=== PATIENT | male | born 1990 | race Caucasian/White ===

== ENCOUNTER 2020-07-22 14:10 | Emergency (ER) | payer MEDICAID, SELFPAY ==
[2020-07-22 14:37] VITALS: BP 114/71; PULSE 73; RESP 18; TEMP 37.1; O2SAT 98; BMI 22.0
[2020-07-22 15:46] LABS: Glucose Urine UA NEG (NEG); Leukocyte Esterase Urine 1+ (NEG); Nitrite Urine NEG (NEG); UACC Culture Trigger YES; Urine Blood NEG (NEG); Urine Ketones NEG (NEG); Urine Protein NEG (NEG-TRACE)
[2020-07-22 15:47] LABS: Appearance Urine CLEAR; Color Urine YELLOW
[2020-07-22 15:54] LABS: RBC Urine 0 /HPF (0); WBC Urine 0-2 /HPF (0-4)
--- NOTE | 2020-07-22 17:24 | ED.MALEGU ---
HPI - Male Genitourinary General Chief complaint: Urogenital-Male Stated complaint: ?std Time Seen by Provider: 07/22/20 17:24 History of Present Illness HPI Narrative: Patient is here for testing and treatment as his girlfriend told him today that she tested positive for both gonorrhea and Chlamydia, she went to a clinic and they have provided her with treatment and he is here for testing and treatment, he denies any discharge he has no testicular pain he has no genital lesions or sores no rashes and says he is asymptomatic, no burning with urination Related Data Previous Rx's Medication Instructions Recorded doxycycline hyclate 100 mg PO BID 7 Days #14 cap 07/22/20 Allergies Allergy/AdvReac Type Severity Reaction Status Date / Time bee pollen [BEE STINGS] Allergy Unknown FACIAL Verified 07/22/20 14:36 SWELLING shrimp Allergy Unknown SWELLING Verified 07/22/20 14:36 Review of Systems Review of Systems: Positive for STD for exposure in negatives are no fever no chills no dizziness no weakness no abdominal pain no nausea or vomiting no genital sores no discharge no burning with urination no changes to urinary pattern no frequency Yes all other systems are reviewed and are negative [facility] Past Medical History Source: nursing notes reviewed Medical History (Updated 07/23/20 @ 00:00 by Background Daemon) Patient denies medical problems Social History Social History Advance Directives: No Advance Directives Information Provided: Yes Physical Exam Vital Signs: Vital Signs: Last Vital Signs Temp 98.7 F 07/22/20 14:37 Pulse 73 07/22/20 14:37 Resp 18 07/22/20 14:37 BP 114/71 07/22/20 14:37 Pulse Ox 98 07/22/20 14:37 Body Mass Index 22.0 General appearance no acute distress The neck is supple The respiratory no acute distress Abdomen soft nontender Genital exam normal Extremities full range of motion x4 Skin no rashes Course Course Course Narrative: Patient is treated for probable gonorrhea and chlamydia, testing was sent MDM - Male Genitourinary Lab Data Labs: Lab Results 07/22/20 07/22/20 Range/Units 15:29 15:29 Urine Color YELLOW Urine Appearance CLEAR Urine pH 6.0 (5.0-8.0) Ur Specific [place] 1.010 (1.005-1.025) Urine Protein NEG (NEG-TRACE) MG/DL Urine Glucose (UA) NEG (NEG) MG/DL Urine Ketones NEG (NEG) MG/DL Urine Blood NEG (NEG) Urine Nitrite NEG (NEG) Ur Leukocyte Esterase 1+ H (NEG) Urine RBC 0 (0) /HPF Urine WBC 0-2 (0-4) /HPF Ur Squamous Epith Cells NONE /LPF Urine Bacteria NONE /LPF Chlam trachomat DNA PCR NOT DETECTED (Not Detect.) N.gonorrhoeae DNA (PCR) DETECTED A (Not Detect.) Discharge Plan Discharge Clinical Impression: Exposure to STD Patient Disposition: Home, Self-Care Additional Instructions: We are treating you with medication for gonorrhea and Chlamydia, take all medication until completed We tested and will call you if there are any positive results We recommend follow-up repeat testing in 10 days to 2 weeks to confirm that treatment was effective [facility] Prescriptions: New doxycycline hyclate 100 mg capsule 100 mg PO BID 7 Days Qty: 14 RF: 0 Interventions: ED Discharge Assessment Last Done: 07/22/20 18:07 Discharge Date/Time: 07/22/20 18:12
[2020-07-22] MEDS: cefTRIAXone sodium 500 MG, Lidocaine HCl 1 % MPF 1 ML IM (17:57)
[2020-07-22] MEDS: Azithromycin 500 MG TABLET 1000 MG PO (17:59)
[2020-07-23 03:29] LABS: CT PCR NOT DETECTED (Not Detect.); NG PCR DETECTED (Not Detect.)
== END 2020-07-22 18:12 | disposition home or self-care (01) ==
PROVIDERS: Emergency Provider Internal Medicine
DX: Z11.3 Encounter for screening for infections with a predominantly sexual mode of transmission (principal)
CPT/HCPCS: 81001; 81003; 87086; 87491; 87591; 96372; 99283; 99284; J0696

== ENCOUNTER 2020-08-02 14:06 | Emergency (ER) | payer MEDICAID, SELFPAY ==
[2020-08-02 14:12] VITALS: BP 103/61; PULSE 67; RESP 16; TEMP 36.6; O2SAT 100; BMI 21.9
--- NOTE | 2020-08-02 14:22 | ED_ITS ---
HPI - General Adult General Chief complaint: General Medical Stated complaint: STD CHECK Time Seen by Provider: 08/02/20 14:22 History of Present Illness HPI narrative: Patient who was seen recently for an STD check as he was concerned his partner might have gonorrhea or chlamydia wants to know his results He was treated at that time for possible gonorrhea or chlamydia He denies any sores no discharge no dysuria Related Data Previous Rx's Medication Instructions Recorded doxycycline hyclate 100 mg PO BID 7 Days #14 cap 07/22/20 Allergies Allergy/AdvReac Type Severity Reaction Status Date / Time bee pollen [BEE STINGS] Allergy Unknown FACIAL Verified 07/22/20 14:36 SWELLING shrimp Allergy Unknown SWELLING Verified 07/22/20 14:36 Review of Systems Review of Systems: Negatives are no fever no chills no headache no sore throat no discharge no testicular swelling no rash no sores no urinary frequency no dysuria Yes all other systems are reviewed and are negative PMFSH Past Medical History Source: nursing notes reviewed Medical History (Updated 08/03/20 @ 00:01 by Pascale Trevizo) Patient denies medical problems Social History Social History Advance Directives: No Advance Directives Information Provided: Yes Physical Exam Vital Signs: Vital Signs: Last Vital Signs Temp 98 F 08/02/20 14:12 Pulse 67 08/02/20 14:12 Resp 16 08/02/20 14:12 BP 103/61 08/02/20 14:12 Pulse Ox 100 08/02/20 14:12 Body Mass Index 21.9 General appearance no acute distress Head is normocephalic atraumatic Pharynx is clear Neck is supple Respiratory no distress General exam deferred Extremities full range of motion x4 Skin no rashes Course Course Course Narrative: Patient had tested positive for gonorrhea after a visit to the ER a week ago, he did not get informed of the results, he denies any discharge or dysuria but he has had sexual intercourse since the treatment with his partner so we did repeat another GC chlamydia test today, he is otherwise well Medical Decision Making Lab Data Labs: Lab Results 08/02/20 Range/Units 14:37 Chlam trachomat DNA PCR NOT DETECTED (Not Detect.) N.gonorrhoeae DNA (PCR) NOT DETECTED (Not Detect.) Discharge Plan Discharge Clinical Impression: Exposure to STD Patient Disposition: Home, Self-Care Additional Instructions: You were treated for both gonorrhea and chlamydia at the time of her last visit We apologize that no one called you with your positive gonorrhea results We will call you if result is positive with in 1 week If you want you can call us for your results at [phone] and ask for the physician sales and marketing assistant who follow-ups emergency room lab results Prescriptions: No Action doxycycline hyclate 100 mg capsule 100 mg PO BID 7 Days Qty: 14 RF: 0 Interventions: ED Discharge Assessment Last Done: 08/02/20 14:43 Discharge Date/Time: 08/02/20 14:43
[2020-08-03 01:08] LABS: CT PCR NOT DETECTED (Not Detect.); NG PCR NOT DETECTED (Not Detect.)
== END 2020-08-02 14:43 | disposition home or self-care (01) ==
PROVIDERS: Physician Assistant Medical; Emergency Provider Emergency Medicine
DX: Z11.3 Encounter for screening for infections with a predominantly sexual mode of transmission (principal)
CPT/HCPCS: 87491; 87591; 99283

== ENCOUNTER 2021-03-25 17:21 | Emergency (ER) | payer MEDICAID, SELFPAY ==
[2021-03-25 19:19] VITALS: BP 112/71; PULSE 99; RESP 18; TEMP 36.8; O2SAT 97; BMI 22.8
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
== END 2021-03-25 19:37 | disposition home or self-care (01) ==
PROVIDERS: Emergency Provider Internal Medicine
DX: R60.0 Localized edema (principal); Z79.899 Other long term (current) drug therapy
CPT/HCPCS: 99282